=== PATIENT | female | born 1945 | race Caucasian/White ===

== ENCOUNTER 2016-08-19 10:56 | Day surgery (SDC) | payer MEDICARE ==
[~2016-08-19 10:56] MED LIST: Acetaminophen TAB* 325 MG PO PRN; Buffered Lidocaine 1% SYR 3ML* 3 ML/SYR SYRINGE INTRADERM ONE; Cyclopentolate 1% OPTH.SOL* 2 ML BTL ONE; Flurbiprofen 0.03% OPTH.SOL* 2.5 ML BTL ONE; Lidocaine 1% MPF* 2 ML VIAL ONE; Neomycin/Polymy/Dex OPHTH.OIN* 3.5 GM ONE; Phenylephrine 2.5% OPTH.SOL* 2 ML BTL ONE; Povidone Iodine 5% OPTH* 30 ML BTL ONE; Tetracaine 0.5% OPTH.SOL 4 ML* 1 DROP BTL ONE; acetaZOLAMIDE TAB* 250 MG ONE
[2016-08-19] MEDS ORDERED: fentaNYL* 50 MCG/ML 2 ML VIAL (100 MCG VIAL) ONE (12:36)
[2016-08-19] MEDS ORDERED: Midazolam* 1 MG/ML 5 ML VIAL (5 MG) ONE (12:36)
[2016-08-19] MEDS ORDERED: Artificial Tear OPHTH.OINT* 3.5 GM ONE (12:46)
[2016-08-19] MEDS ORDERED: Metoprolol Tartrate IV* 1 MG/ML 5 ML VIAL ONE (13:16)
[2016-08-19 13:51] VITALS: BP 125/57
--- NOTE | 2016-08-20 02:53 | OP ---
DATE OF OPERATION: 08/19/16 - [facility] DATE OF : 43 SURGEON: Hussain Neil MD ANESTHESIOLOGIST: Karan Strickland MD ANESTHESIA: Monitored anesthesia care. PRE-OP DIAGNOSIS: Cataract of left eye. POST-OP DIAGNOSIS: Cataract of left eye. OPERATIVE PROCEDURE: Cataract extraction of left eye. IMPLANTS: SN60WF 26.5 diopter lens to the left eye. COMPLICATIONS: None. DESCRIPTION OF PROCEDURE: The patient was given phenylephrine 2.5% and cyclopentolate 1% eye drops to the operative eye in the preoperative area. The patient was brought to the operating room where a time-out was taken to identify the correct patient, site and side of surgery. The patient's left eye was prepped and draped in the usual sterile fashion with 5% Betadine. A second time-out was taken to verify the correct patient, site and side of surgery, and correct lens selection. A lid speculum was placed to the left eye. A 1-mm paracentesis blade was used to make a clear corneal incision in the inferotemporal position. Preservative-free 1% lidocaine was injected into the anterior chamber. DuoVisc was then injected into the anterior chamber. A 2.75- mm keratome blade was used to make a triplanar incision at the superotemporal position. A cystotome was used to initiate a capsulorrhexis which was completed with Utrata forceps in a continuous and curvilinear manner. Hydrodissection of the lens was then performed with BSS on a cannula. The lens could be spun in the capsular bag. The phacoemulsification handpiece was then used with a [id number]-[id number] technique to remove the nucleus in its entirety with 16.99 CDE. The I/A handpiece was then used to remove the residual cortical lens material. DuoVisc was then injected to inflate the capsular bag. The planned SN60WF 26.5 diopter lens was then injected to the capsular bag. The residual DuoVisc was then removed from the eye with the I/A handpiece. The corneal incisions were then hydrated and no leaks occurred at physiologic pressure around 20 mmHg per palpation. The lid speculum was then removed and drapes removed. Maxitrol ointment was then placed on to the surface of the operative eye. An adhesive patch and shield were then placed in the operative eye. The patient was taken to the postoperative area in stable condition. [id number]/[facility] #: [id number] ALEX
== END 2016-08-19 13:43 | disposition home or self-care (01) ==
LOC: OREAST 10:56
PROVIDERS: ATTEND Student in an Organized Health Care Education/Training Program
DX: H25.812 Combined forms of age-related cataract, left eye (principal); D31.31 Benign neoplasm of right choroid; H53.021 Refractive amblyopia, right eye; H50.15 Alternating exotropia; I10 Essential (primary) hypertension; Z87.891 Personal history of nicotine dependence
CPT/HCPCS: A9270-GY; J2250; J3010; J3490; V2632

== ENCOUNTER 2016-08-26 11:43 | Day surgery (SDC) | payer MEDICARE ==
[2016-08-26] MEDS ORDERED: Midazolam* 1 MG/ML 2 ML VIAL (2 MG) ONE ×2 (13:30→13:52)
[2016-08-26] MEDS ORDERED: Artificial Tear OPHTH.OINT* 3.5 GM ONE (14:27)
[2016-08-26 16:10] VITALS: BP 125/73
--- NOTE | 2016-08-27 06:18 | OP ---
DATE OF OPERATION: 08/26/16 - [facility] DATE OF : 43 SURGEON: Hussain Neil MD ANESTHESIOLOGIST: Ana Lindsay MD ANESTHESIA: Monitored anesthesia care. PRE-OP DIAGNOSIS: Cataract of right eye. POST-OP DIAGNOSIS: Cataract of right eye. OPERATIVE PROCEDURE: Cataract extraction of the right eye. IMPLANTS: SN60WF 26.5 diopter lens to right eye. COMPLICATIONS: None. DESCRIPTION OF PROCEDURE: The patient was given phenylephrine 2.5% and cyclopentolate 1% eye drops to the operative eye in the preoperative area. The patient was brought to the operating room where a time-out was taken to identify the correct patient, side, and site of surgery and correct lens selection. The patient's right eye was prepped and draped in the usual sterile fashion with 5% Betadine. A second time-out was taken to verify the correct patient, side, and site of surgery and correct lens selection. A lid speculum was placed to the right eye. A 1-mm paracentesis blade was used to make a clear corneal incision in the superotemporal position. Preservative-free 1% lidocaine was injected into the anterior chamber. DuoVisc was then injected into the anterior chamber. A 2.75-mm Keratome blade was used to make a triplanar incision at the inferotemporal position. A cystotome was used to initiate a capsulorrhexis, which was completed with Utrata forceps in a continuous and curvilinear manner. Hydrodissection of the lens was then performed with BSS on a cannula. The lens could be spun in the capsular bag. The phacoemulsification handpiece was then used with divide-and- conquer technique to remove the nucleus in its entirety with 23.61 CDE. The I/A handpiece was then used to remove the residual cortical material. DuoVisc was then injected to inflate the capsular bag. The planned SN60WF 26.5 diopter lens was then injected into the capsular bag. The residual DuoVisc was then removed from the eye with the I/A handpiece. The corneal incisions were then hydrated and no leaks occurred at physiologic pressure around 20 mmHg per palpation. A lid speculum was then removed and drapes removed. Preservative- free artificial tear ointment was then placed to the surface of the operative eye. An adhesive patch and shield were then placed on the operative eye. The patient was taken to the postoperative area in stable condition. [id number]/[facility] #: [id number] ALEX
== END 2016-08-26 14:46 | disposition home or self-care (01) ==
LOC: OREAST 11:43
PROVIDERS: ATTEND Student in an Organized Health Care Education/Training Program
DX: H25.811 Combined forms of age-related cataract, right eye (principal); I10 Essential (primary) hypertension; I35.0 Nonrheumatic aortic (valve) stenosis; E78.5 Hyperlipidemia, unspecified; Z87.891 Personal history of nicotine dependence
CPT/HCPCS: A9270-GY; J2250; V2632

== ENCOUNTER 2017-10-11 13:34 | Emergency (ER) | payer MEDICARE ==
--- NOTE | 2017-10-11 17:00 | RAD ---
Indication: RIGHT knee pain. Comparison: July 12, 2007 radiographs. Technique: AP, tunnel, crosstable lateral, and sunrise views RIGHT knee. Report: Negative for joint effusion, fracture, or malalignment. Minimal osteophytosis and mild medial joint space narrowing. Large burden of amorphous calcification visualized along the femoral segment of the medial collateral ligament. Unremarkable soft tissue contours. IMPRESSION: 1. Kellgren and Vineet grade 2 osteoarthritis. 2. Ossification of a previously injured medial femoral collateral ligament/ Jerica-Stieda lesion. This finding is new compared with the 2008 exam. Correlate with clinical assessment and injury history.
--- NOTE | 2017-10-11 17:31 | ED ---
Lower Extremity - HPI Summary HPI Summary: Patient is a 72-year-old female who presents emergency department for ongoing right knee pain times several weeks. Patient does not recall any specific falls or injuries but states she noticed swelling and pain developed after she was kneeling on her knees. Symptoms are mild in severity. Walking makes symptoms worse. Rest makes symptoms better. She does take oxycodone on a chronic basis for chronic neck pain. - History of Current Complaint Chief Complaint: EDExtremityLower Stated Complaint: RT KNEE PAIN Time Seen by Provider: 10/11/17 16:18 Hx Obtained From: Patient Pain Intensity: 8 - Allergies/Home Medications Allergies/Adverse Reactions: Allergies Allergy/AdvReac Type Severity Reaction Status Date / Time adhesive tape Allergy Blisters Verified 10/11/17 13:55 alendronate sodium Allergy Rash Verified 10/11/17 13:55 bacitracin Allergy Rash Verified 10/11/17 13:55 [From Neosporin ([id number])] clarithromycin [From Biaxin] Allergy Nausea And Verified 10/11/17 13:55 Vomiting fentanyl Allergy Rash Verified 10/11/17 13:55 neomycin Allergy Rash Verified 10/11/17 13:55 [From Neosporin ([id number])] Penicillins Allergy Difficulty Verified 10/11/17 13:55 Breathing polymyxin B Allergy Rash Verified 10/11/17 13:55 [From Neosporin ([id number])] pregabalin Allergy Swelling Verified 10/11/17 13:55 ragweed pollen Allergy Difficulty Verified 10/11/17 13:55 Breathing strawberry Allergy Hives Verified 10/11/17 13:55 Sulfa (Sulfonamide Allergy Unknown Verified 10/11/17 13:55 Antibiotics) Reaction Details Tetracyclines Allergy Difficulty Verified 10/11/17 13:55 Breathing avalox Allergy Nausea Uncoded 10/11/17 13:55 bandaids Allergy Blisters Uncoded 10/11/17 13:55 fluid pills Allergy See Comment Uncoded 10/11/17 13:55 PMH/Surg Hx/FS Hx/Imm Hx Previously Healthy: Yes Endocrine/Hematology History: Denies: Hx Diabetes Cardiovascular History: Reports: Hx Coronary Artery Disease - CHOLESTEROL CONTROL WITH MEDICATION, Hx Hypercholesterolemia, Hx Hypertension - ON MEDICATION FOR, Hx Valvular Heart Disease - AORTIC STENOSIS, Other Cardiovascular Problems/Disorders - AORTIC STENOSIS Denies: Hx Pacemaker/ICD Respiratory History: Reports: Hx Seasonal Allergies, Other Respiratory Problems/ Disorders - HX OF SMOKER QUIT 2002, GI History: Reports: Hx Gastroesophageal Reflux Disease - uses medication, Hx Hiatal Hernia, Hx Irritable Bowel - RELATED TO STRESS LEVEL, Other GI Disorders - CONSTIPATION R/T MEDS History: Reports: Other Problems/Disorders - HISTORY OF BLADDER INFECTIONS - NO PROBLEMS NOW Musculoskeletal History: Reports: Hx Arthritis - OSTEOARTHRITIS, MARIA LUZ HIP REPLACEMENT, HANDS, Hx Back Problems, Hx Bursitis, Hx Tendonitis - BILATERAL FEET, LEFT ELBOW AND HAND, Other Musculoskeletal History - neck problem; Bunions both feet, Sensory History: Reports: Hx Cataracts - RIGHT & LEFT EYE, Hx Contacts or Glasses - GLASSES Denies: Hx Hearing Aid Opthamlomology History: Reports: Hx Cataracts - RIGHT & LEFT EYE, Hx Contacts or Glasses - GLASSES Neurological History: Reports: Hx Headaches - OCCASIONAL, Other Neuro Impairments/Disorders - HX OF SYNCOPAL EPISODES- LAST TIME A COUPLE OF YEARS AGO , NO PROBLEMS NOW Psychiatric History: Reports: Hx Anxiety - NERVOUS R/T UPCOMING SURGERY, Hx Panic Disorder - Cancer History Hx Chemotherapy: No Hx Radiation Therapy: No - Surgical History Surgery Procedure, Year, and Place: REMOVAL OF [place] [place]. 1979'S BILATERAL BREAST BIOPSIES[place] [place]. [id number]. 1993-LEFT HAND TENDON REPAIR[place]. 1997-NECK FUSION[place] [place]. 2004-LEFT TOTAL HIP REPLACEMENT[place] [place]. 2008-BACK SURGERY-[facility] [place]. 2010-RIGHT HIP REPLACEMENT[place] [place]. 2011- RIGHT HIP REDONE - [place]. [id number]. 2013 RIGHT BREAST SURGERY , [facility] [place]. 2014 LEFT THUMB SURGERY WITH INSTRUMENTATION,[facility] [place]. 2015 LEFT KNEE ARTHROSCOPY, [facility] [place]. RIGHT HAND BIOPSY AND NOSE BIOPSY, OFFICE Hx Anesthesia Reactions: No Infectious Disease History: No Infectious Disease History: Denies: Traveled Outside the [place] in Last 30 Days - Social History Occupation: Retired Lives: Alone Alcohol Use: None Substance Use Type: Reports: None Substance Use Comment - Amount & Last Used: oxycodone and methadone Smoking Status (MU): Former Smoker Type: Cigarettes Amount Used/How Often: PACK A DAY Length of Time of Smoking/Using Tobacco: about 20 years Have You Smoked in the Last Year: No Review of Systems Constitutional: Negative Negative: Fever, Chills Positive: Other - right knee pain and swelling All Other Systems Reviewed And Are Negative: Yes Physical Exam Triage Information Reviewed: Yes Vital Signs On Initial Exam: Initial Vitals Temp Pulse Resp BP Pulse Ox 98.3 F 71 16 124/72 94 10/11/17 13:45 10/11/17 13:45 10/11/17 13:45 10/11/17 13:45 10/11/17 13:45 Vital Signs Reviewed: Yes Appearance: Positive: Well-Appearing - Patient sitting in bed in no acute distress. Very talkative. Skin: Positive: Warm, Dry Musculoskeletal: Positive: Other - Mild edema and pain to the medial aspect of the right knee. Full range of motion with pain. No increased laxity. There is no overlying erythema or increased warmth to the knee. Leg is neurovascularly intact. No calf tenderness or edema. Neurological: Positive: Normal Psychiatric: Positive: Normal Diagnostics - Vital Signs Vital Signs Temp Pulse Resp BP Pulse Ox 10/11/17 15:44 98.0 F 67 14 128/74 98 10/11/17 13:45 98.3 F 71 16 124/72 94 - Laboratory Lab Statement: Any lab studies that have been ordered have been reviewed, and results considered in the medical decision making process. Lower Extremity Course/Dx - Course Course Of Treatment: Patient presenting for ongoing right knee pain. X-ray shows arthritic changes and old ligamental damage without acute findings, reading per radiology. Results were discussed with patient. Recommend Tylenol for pain control. Recommend following up with orthopedics for further evaluation and intervention. Patient understands and agrees. - Diagnoses Differential Diagnosis/HQI/PQRI: Positive: Bursitis, Contusion, Fracture (Closed ), Sprain, Strain, Tendonitis Provider Diagnoses: Osteoarthritis, Knee pain Discharge - Sign-Out/Discharge Documenting (check all that apply): Discharge/Admit/Transfer - Discharge Plan Condition: Good Disposition: HOME Patient Education Materials: Osteoarthritis (ED), Knee Pain (ED) Referrals: Reginaldo Land MD [Medical Doctor] - Shelton Iglesias MD [Primary Care Provider] - Additional Instructions: Call Dr. Land' office on Friday for an appointment Tylenol for pain as directed Return to ER if symptoms change or worsen - Billing Disposition and Condition Condition: GOOD Disposition: HOME
[2017-10-11 17:32] VITALS: BP 123/73
== END 2017-10-11 17:30 | disposition home or self-care (01) ==
LOC: ED 13:34
DX: M17.11 Unilateral primary osteoarthritis, right knee (principal); M25.561 Pain in right knee; I25.10 Atherosclerotic heart disease of native coronary artery without angina pectoris; I10 Essential (primary) hypertension; I35.0 Nonrheumatic aortic (valve) stenosis; E78.00 Pure hypercholesterolemia, unspecified; K21.9 Gastro-esophageal reflux disease without esophagitis; K44.9 Diaphragmatic hernia without obstruction or gangrene; Z96.643 Presence of artificial hip joint, bilateral; F41.0 Panic disorder [episodic paroxysmal anxiety]; Z88.1 Allergy status to other antibiotic agents; Z88.3 Allergy status to other anti-infective agents; Z88.0 Allergy status to penicillin; Z88.2 Allergy status to sulfonamides; Z88.8 Allergy status to other drugs, medicaments and biological substances; Z91.048 Other nonmedicinal substance allergy status; Z87.891 Personal history of nicotine dependence
CPT/HCPCS: 99282

== ENCOUNTER 2022-12-26 12:23 | Inpatient (IN) ==
[2022-12-26 18:37] LABS: Hematocrit 35.6 % (35-45); Hemoglobin 12.2 g/dL (11.5-14.3); Mean Corpuscular Hemoglobin 29.9 pg (27-33); Mean Corpuscular Hgb Conc 34.2 g/dL (31-36); Mean Corpuscular Volume 87.7 fL (80-97); Mean Platelet Volume 8.4 fL (7.5-11.2); Platelet Count 200 10^3/uL (150-450); Red Blood Count 4.06 10^6/uL (3.63-4.92); Red Cell Distribution Width 13.2 % (12-17); White Blood Count 8.4 10^3/uL (3.8-11.8)
[2022-12-26 18:46] LABS: Activated Partial Thrombo Time 27.2 seconds (26.0-38.0); INR 1.31 (0.88-1.18)
[2022-12-26 18:55] LABS: Albumin/Globulin Ratio 1.1 (1-3); C Reactive Protein 187.84 mg/L (<8.01); Calcium 8.9 mg/dL (8.6-10.3); Creatinine, Serum 0.7 mg/dL (0.51-0.95); Globulin 3.6 g/dL (2-4); Potassium 4.2 mmol/L (3.5-5.0); Total Protein 7.6 g/dL (6.4-8.9); eGFR CKD-EPI 88.5 (>60)
[2022-12-26 19:35] LABS: ABS Lymphocytes 0.4 10^3/uL (1.0-4.8); ABS Monocytes 0.7 10^3/uL (0.0-0.9); ABS Neutrophils 7.4 10^3/uL (1.5-7.6); ABS Nucleated RBC 0.01 10^3/ul; Lymphocyte % 4.6 %; Nucleated Red Blood Cells % 0.1 /100 WBC (0.0-0.4)
[2022-12-26] MEDS ORDERED: Ondansetron 4 mg VIAL 2 MG/ML 2 ml VIAL IV ONE (19:45)
[2022-12-26] MEDS ORDERED: Lactated Ringers 1000 ml BAG 1,000 ML IV ONE (19:45)
[2022-12-26 20:10] LABS: High Sensitivity Troponin 1 Hr 19 pg/mL (<15)
[2022-12-26 21:57] LABS: Urine Appearance Cloudy; Urine Bilirubin Negative (Negative); Urine Blood 2+ (Negative); Urine Color Amber; Urine Glucose Negative (Negative); Urine Ketones 2+ (Negative); Urine Nitrite Negative (Negative); Urine Protein 2+(100 mg/dL) (Negative); Urine Specific Gravity 1.018 (1.002-1.030); Urine Urobilinogen Negative (Negative)
[2022-12-26 21:59] LABS: Urine Bacteria 1+ (Absent); Urine Red Blood Cell 3+(>10/hpf) (Absent); Urine Squamous Epithelial Cell Present (Absent); Urine White Blood Cell 3+(>20/hpf) (Absent)
[2022-12-26] MEDS ORDERED: Iohexol 350 (CONTRAST) 500 ML MDV IV ONE (22:07)
[2022-12-26] MEDS ORDERED: cefTRIAXone 2 gm/50 mL D5W 2 GM/50 ML BAG IV ONE (22:29)
[2022-12-26] MEDS ORDERED: Ondansetron ODT 4 mg TAB 4 MG TAB SL ONE (23:50)
[2022-12-27] MEDS ORDERED: Azithromycin 500 mg/250 ml NS 500 MG/250 ML BAG IVPB ONE (01:17)
[2022-12-27] MEDS ORDERED: Ondansetron 4 mg VIAL 2 MG/ML 2 ml VIAL IV PRN (03:01)
[2022-12-27] MEDS: NS 0.9% 1000 ml BAG 1,000 ML IV SCH ×2 (04:12→16:55)
[2022-12-27 05:35] LABS: Calcium 7.9 mg/dL (8.6-10.3); Creatinine, Serum 0.7 mg/dL (0.51-0.95); Potassium 3.8 mmol/L (3.5-5.0); eGFR CKD-EPI 88.5 (>60)
[2022-12-27] MEDS: Senna TAB 8.6 mg TAB PO SCH ×2 (07:55→19:31)
[2022-12-27] MEDS ORDERED: Lactated Ringers 1000 ml BAG 1,000 ML IV ONE (10:16)
[2022-12-27] MEDS ORDERED: Acetaminophen IV 1 GM/100ML 1,000 MG/100 ML BAG IV PRN (15:46)
[2022-12-28] MEDS: cefTRIAXone 1 gm/50 mL D5W 1 GM/50 ML BAG IV SCH ×2 (00:58→22:43)
[2022-12-28] MEDS: Azithromycin 500 mg/250 ml NS 500 MG/250 ML BAG IVPB SCH (01:32)
[2022-12-28 07:13] LABS: ABS Lymphocytes 0.3 10^3/uL (1.0-4.8); ABS Monocytes 0.3 10^3/uL (0.0-0.9); ABS Neutrophils 6.2 10^3/uL (1.5-7.6); ABS Nucleated RBC 0.01 10^3/ul; Hematocrit 30.1 % (35-45); Hemoglobin 10.4 g/dL (11.5-14.3); Lymphocyte % 4.4 %; Mean Corpuscular Hemoglobin 30.7 pg (27-33); Mean Corpuscular Hgb Conc 34.7 g/dL (31-36); Mean Corpuscular Volume 88.6 fL (80-97); Mean Platelet Volume 8.2 fL (7.5-11.2); Nucleated Red Blood Cells % 0.1 /100 WBC (0.0-0.4); Platelet Count 151 10^3/uL (150-450); White Blood Count 6.9 10^3/uL (3.8-11.8)
[2022-12-28 07:32] LABS: Calcium 7.3 mg/dL (8.6-10.3); Creatinine, Serum 0.55 mg/dL (0.51-0.95); Magnesium 1.8 mg/dL (1.9-2.7); Potassium 3.6 mmol/L (3.5-5.0); eGFR CKD-EPI 93.8 (>60)
[2022-12-28] MEDS: Senna TAB 8.6 mg TAB PO SCH ×2 (10:45→22:19)
[2022-12-28] MEDS: Magnesium Hydroxide LIQ 30 ML UDC PO ONE ×2 (22:19→22:44)
[2022-12-29] MEDS: Azithromycin 500 mg/250 ml NS 500 MG/250 ML BAG IVPB SCH (04:00)
[2022-12-29 06:52] LABS: ABS Lymphocytes 0.5 10^3/uL (1.0-4.8); ABS Monocytes 0.6 10^3/uL (0.0-0.9); ABS Neutrophils 4.9 10^3/uL (1.5-7.6); Eosinophil % 0.4 %; Hematocrit 29.8 % (35-45); Hemoglobin 10.2 g/dL (11.5-14.3); Lymphocyte % 8.4 %; Mean Corpuscular Hemoglobin 29.5 pg (27-33); Mean Corpuscular Hgb Conc 34.2 g/dL (31-36); Mean Corpuscular Volume 86.1 fL (80-97); Mean Platelet Volume 8.2 fL (7.5-11.2); Nucleated Red Blood Cells % 0.1 /100 WBC (0.0-0.4); Platelet Count 165 10^3/uL (150-450); Red Blood Count 3.46 10^6/uL (3.63-4.92); Red Cell Distribution Width 13.2 % (12-17)
[2022-12-29 07:10] LABS: Calcium 7.3 mg/dL (8.6-10.3); Creatinine, Serum 0.51 mg/dL (0.51-0.95); Magnesium 1.9 mg/dL (1.9-2.7); Potassium 3.4 mmol/L (3.5-5.0); eGFR CKD-EPI 95.5 (>60)
[2022-12-29] MEDS ORDERED: Potassium Chlor 20 meq TAB.ER PO ONE (07:56)
[2022-12-29] MEDS: Senna TAB 8.6 mg TAB PO SCH ×2 (09:00→21:20)
[2022-12-29] MEDS: Polyethylene Glycol 3350 17 GM PACKET PO SCH ×2 (18:12→21:32)
[2022-12-29] MEDS: cefTRIAXone 1 gm/50 mL D5W 1 GM/50 ML BAG IV SCH (22:51)
[2022-12-30] MEDS: Polyethylene Glycol 3350 17 GM PACKET PO SCH ×2 (09:19→22:13)
[2022-12-30] MEDS: Senna TAB 8.6 mg TAB PO SCH ×2 (09:19→22:12)
[2022-12-30] MEDS ORDERED: Lactulose 30 ml UDC PO ONE (09:46)
[2022-12-30] MEDS ORDERED: SPIRIVA Respimat (tiotropium) 2.5 mcg/inh Inhaler INH SCH (18:00)
[2022-12-30] MEDS ORDERED: Enoxaparin 40 MG/0.4 ML SYR SUBCUT SCH (20:00)
[2022-12-30] MEDS ORDERED: cefTRIAXone 1 GM Q24H (ADVAN) IVPB SCH (23:00)
[2022-12-31] MEDS ORDERED: Lactulose 30 ml UDC PO SCH (09:00)
[2022-12-31] MEDS: Polyethylene Glycol 3350 17 GM PACKET PO SCH (10:19)
[2022-12-31] MEDS: Senna TAB 8.6 mg TAB PO SCH ×2 (10:22→10:40)
[2022-12-31 14:04] VITALS: BP 131/63
== END 2022-12-31 17:00 | disposition home or self-care (01) | DRG 193 ==
LOC: ED 12:23 → EDHOLD 12:23 → SUATTDRO 12-27 03:30 → MED 12-27 11:18
PROVIDERS: ADMIT Student in an Organized Health Care Education/Training Program; ATTEND Family Medicine